=== PATIENT | female | born 2000 | race Caucasian/White ===

== ENCOUNTER 2021-05-24 15:49 | Observation (INO) ==
[2021-05-24] MEDS ORDERED: ONDANSETRON INJ 2 MG/ML 2 ML VIAL IV STA (16:09)
--- NOTE | 2021-05-24 16:10 | Emergency Department Note ---
History of Present Illness General Chief complaint: Alcohol Intoxication Time Seen by Provider: 05/24/21 15:57 History of Present Illness This is a 21-year-old otherwise healthy female that presents to the emergency department via EMS over concerns of alcohol intoxication/vomiting. In speaking with the EMS staff, they were notified by [place] police that the patient was found being carried/supported by 2 people. This was near [facility]. Police witnessed this and then checked on her. She was found to be quite intoxicated and vomiting. EMS were summoned. As EMS were being summoned the patient was placed in her residence at [address] however then began vomiting. EMS notes that she continues to vomit on scene and also in the ambulance. Patient was found to have what they believe is approximately 31 tallies on her left forearm which she notes indicates number of consumed alcohol drinks. The patient denies any pain. The patient denies any pertinent past medical history, surgeries or allergies. Patient slow to answer questions noting suspected intoxicated state. Home Medications Medication Instructions Recorded Confirmed Type No Known Home Medications 05/24/21 05/24/21 History Allergies Allergy/AdvReac Type Severity Reaction Status Date / Time No Known Allergies Allergy Unverified 05/24/21 22:13 Past Med/Surg History Medical History No pertinent past medical history Surgical History No pertinent past surgical history Social History Smoking Status: Never smoker Hx Alcohol Use: Yes Alcohol type: hard liquor Hx Substance Use: No Preferred Language: German Communication Ability: Effective Wellness Health Coach Required: No Beliefs That Will Affect Care: None Current Living Situation: Other Current Living Situation Comment: four roomates Feels Safe at Home: Yes Assistive Devices: None Review of Systems A total of 10 systems reviewed and were otherwise negative Physical Exam Vital Signs Vital Signs - 24 hr 05/24/21 15:40 05/24/21 16:00 05/24/21 16:05 Temperature 36.3 C L Temperature Source Oral Pulse Rate 68 61 56 L Pulse Rate from SpO2 Sensor 59 L Pulse Rhythm Regular Respiratory Rate 16 17 20 Respiratory Effort / Characteristics Non-Labored Respiratory Depth Normal Respiratory Pattern Regular Blood Pressure 109/58 L 109/58 L Blood Pressure Mean 75 75 Pulse Oximetry 98 99 99 Oxygen Delivery Method Room Air Room Air Sepsis Recent Fever Within 48 Hours No Sepsis New/Unexplained Change in Mental Status No Sepsis Action Taken by Nursing No Action Required 05/24/21 16:10 05/24/21 16:20 05/24/21 16:30 Temperature Temperature Source Pulse Rate 64 87 76 Pulse Rate from SpO2 Sensor 66 86 75 Pulse Rhythm Respiratory Rate 18 20 23 Respiratory Effort / Characteristics Respiratory Depth Respiratory Pattern Blood Pressure 116/54 L Blood Pressure Mean 74 Pulse Oximetry 100 100 100 Oxygen Delivery Method Sepsis Recent Fever Within 48 Hours Sepsis New/Unexplained Change in Mental Status Sepsis Action Taken by Nursing 05/24/21 16:40 05/24/21 16:50 05/24/21 17:00 Temperature Temperature Source Pulse Rate 70 73 72 Pulse Rate from SpO2 Sensor 66 73 72 Pulse Rhythm Respiratory Rate 24 15 23 Respiratory Effort / Characteristics Respiratory Depth Respiratory Pattern Blood Pressure 97/53 L Blood Pressure Mean 67 Pulse Oximetry 100 100 99 Oxygen Delivery Method Sepsis Recent Fever Within 48 Hours Sepsis New/Unexplained Change in Mental Status Sepsis Action Taken by Nursing 05/24/21 17:10 05/24/21 17:20 05/24/21 17:30 Temperature Temperature Source Pulse Rate 75 55 L 63 Pulse Rate from SpO2 Sensor 77 54 L 57 L Pulse Rhythm Respiratory Rate 24 17 17 Respiratory Effort / Characteristics Respiratory Depth Respiratory Pattern Blood Pressure Blood Pressure Mean Pulse Oximetry 100 99 99 Oxygen Delivery Method Sepsis Recent Fever Within 48 Hours Sepsis New/Unexplained Change in Mental Status Sepsis Action Taken by Nursing 05/24/21 17:40 05/24/21 17:50 05/24/21 18:00 Temperature Temperature Source Pulse Rate 76 71 73 Pulse Rate from SpO2 Sensor 78 71 73 Pulse Rhythm Respiratory Rate 22 16 20 Respiratory Effort / Characteristics Respiratory Depth Respiratory Pattern Blood Pressure 114/57 L Blood Pressure Mean 76 Pulse Oximetry 100 100 100 Oxygen Delivery Method Room Air Room Air Room Air Sepsis Recent Fever Within 48 Hours Sepsis New/Unexplained Change in Mental Status Sepsis Action Taken by Nursing 05/24/21 18:10 05/24/21 18:20 05/24/21 18:30 Temperature Temperature Source Pulse Rate 90 90 Pulse Rate from SpO2 Sensor 90 89 Pulse Rhythm Respiratory Rate 20 27 H Respiratory Effort / Characteristics Respiratory Depth Respiratory Pattern Blood Pressure 113/58 L Blood Pressure Mean 76 Pulse Oximetry 100 100 Oxygen Delivery Method Room Air Room Air Room Air Sepsis Recent Fever Within 48 Hours Sepsis New/Unexplained Change in Mental Status Sepsis Action Taken by Nursing 05/24/21 18:40 05/24/21 18:50 05/24/21 19:00 Temperature Temperature Source Pulse Rate 87 86 84 Pulse Rate from SpO2 Sensor 86 85 Pulse Rhythm Respiratory Rate 19 16 15 Respiratory Effort / Characteristics Respiratory Depth Respiratory Pattern Blood Pressure 121/77 Blood Pressure Mean 91 Pulse Oximetry 100 99 Oxygen Delivery Method Room Air Room Air Room Air Sepsis Recent Fever Within 48 Hours Sepsis New/Unexplained Change in Mental Status Sepsis Action Taken by Nursing 05/24/21 19:10 05/24/21 19:20 05/24/21 19:30 Temperature Temperature Source Pulse Rate 105 H 85 89 Pulse Rate from SpO2 Sensor 107 H 86 91 H Pulse Rhythm Respiratory Rate 23 23 24 Respiratory Effort / Characteristics Respiratory Depth Respiratory Pattern Blood Pressure 130/73 Blood Pressure Mean 92 Pulse Oximetry 99 100 99 Oxygen Delivery Method Room Air Room Air Room Air Sepsis Recent Fever Within 48 Hours Sepsis New/Unexplained Change in Mental Status Sepsis Action Taken by Nursing 05/24/21 19:40 Temperature Temperature Source Pulse Rate 87 Pulse Rate from SpO2 Sensor 175 H Pulse Rhythm Respiratory Rate 20 Respiratory Effort / Characteristics Respiratory Depth Respiratory Pattern Blood Pressure Blood Pressure Mean Pulse Oximetry 100 Oxygen Delivery Method Room Air Sepsis Recent Fever Within 48 Hours Sepsis New/Unexplained Change in Mental Status Sepsis Action Taken by Nursing VITAL SIGNS - Vital signs and nursing notes were reviewed. Stable and afebrile. GENERAL - 21-year-old female appearing her stated age. Patient is slow to re spond to questions noting the suspected intoxicated state. She answers with basic responses. Patient does clinically appear to be intoxicated. SKIN - Gross examination of the entire body surface demonstrates no lacerations to the body surface. There are black tally moreno to the patient's left ventral forearm region. HEAD - Normocephalic, Atraumatic. No Cross's Sign or Raccoon's Eyes. No depres sed skull fractures palpable. EYES - PERRL with EOMI bilaterally. Pupils are dilated. Patient slow to open her eyes. EARS - No deformities of external structures noted on gross examination bilaterally. No hemotympanum present. No tympanic perforation noted. Handle of malleus, umbo, cone of light, pars tensa/flaccid all easily visualized. NOSE - Midline and without cyanosis. No epistaxis or clear watery discharge noted. Septum midline without deviation. No septal hematoma noted. No overlying ecchymosis noted. MOUTH/OROPHARYNX - Without perioral cyanosis. Tongue midline with equal elevation of palate bilaterally. No blood noted in the oropharynx. No tonsillar hypertrophy, erythema, or exudates noted. No dental fractures noted. NECK -no signs of neck trauma clinically. LUNGS - Chest wall symmetric without accessory muscle use, intercostals retractions, or central cyanosis. Normal vesicular breath sounds CTA B/L. No wheezes, rales, or rhonchi appreciated. CARDIAC - RRR with S1/S2. No murmur, rubs, or gallops appreciated. EXTREMITIES - No gross deformities noted of the extremities. +5/5 strength noted in UE/LE bilaterally. NEUROLOGIC - Cranial nerves II through XII grossly intact. PSYCH -patient alert when asked questions but does not know where she currently is. Course Administered Medications Multivitamins 10 ml/ Thiamine HCl 100 mg/ Folic Acid 1 mg/Sodium Chloride 1,011.2 mls @ 125 mls/hr IV .Q8H6M ONE Stop: 05/25/21 02:35 Last Admin: 05/24/21 20:27 Dose: 125 mls/hr Documented by: [id number] Discontinued Medications Sodium Chloride (Nss 1000ml) 1,000 mls @ 250 mls/hr IV .Q4H JAMEY Stop: 05/24/21 21:29 Last Infusion: 05/25/21 01:09 Dose: 0 mls/hr Documented by: [id number] Infusion: 05/24/21 20:52 Dose: 0 mls/hr Documented by: [id number] Admin: 05/24/21 17:28 Dose: 250 mls/hr Documented by: [id number] Lorazepam (Lorazepam 2 Mg/1 Ml Vial) 0.5 mg IV NOW STA Stop: 05/24/21 20:32 Last Admin: 05/24/21 20:52 Dose: 0.5 mg Documented by: [id number] Ondansetron HCl (Ondansetron Inj 2 Mg/Ml 2 Ml Vial) 4 mg IV NOW STA Stop: 05/24/21 16:10 Last Admin: 05/24/21 16:41 Dose: 4 mg Documented by: [id number] Medical Decision Making Laboratory Data Result diagrams: 05/24/21 16:25 05/24/21 16:25 Lab Results 05/24/21 05/24/21 05/24/21 Range/Units 16:25 16:25 16:25 WBC (4.8-10.8) K/uL RBC (4.2-5.4) M/uL Hgb (12.0-16.0) g/dL Hct (37-47) % MCV (80-100) fL MCH (25-34) pg MCHC (32-36) g/dL RDW Std Deviation (36.4-46.3) fL RDW Coeff of Robby (11.5-14.5) % Plt Count (130-400) K/uL MPV (7.4-10.4) fL Immature Gran % (Auto) % Neut % (Auto) % Lymph % (Auto) % [place] % (Auto) % Eos % (Auto) % Baso % (Auto) % Neut # (Auto) (1.4-6.5) K/uL Lymph # (Auto) (1.2-3.4) K/uL [place] # (Auto) (0.11-0.59) K/uL Eos # (Auto) (0-0.5) K/uL Baso # (Auto) (0-0.2) K/uL Immature Gran # (Auto) (0.00-0.02) K/uL Sodium 136 (136-145) mmol/L Potassium 3.6 (3.5-5.1) mmol/L Chloride 105 (98-107) mmol/L Carbon Dioxide 20 L (21-32) mmol/L Anion Gap 11 (3-11) BUN 13 (6-23) mg/dl Creatinine 0.83 (0.6-1.2) mg/dl Est Cr Clr Drug Dosing Not Reportable Est GFR ( Amer) 117.7 ml/min Est GFR (Non-Af Amer) 101.5 ml/min Fasting Glucose 101 H (70-99) mg/dl Calcium 8.3 L (8.5-10.1) mg/dl Phosphorus (2.5-4.9) mg/dl Magnesium (1.7-2.4) mg/dl Troponin I (0-0.04) ng/ml HCG, Qual Negative (Negative) Urine Opiates Screen (Neg) Ur Methadone, Qual (Neg) Urine Barbiturates (Neg) Ur Phencyclidine (PCP) (Neg) U Amphetamin/Meth Scrn (Neg) MDMA (Ecstasy) Screen (Neg) U Benzodiazepines Scrn (Neg) Ur Cocaine Metabolite (Neg) U Marijuana (THC) Screen (Neg) Ethyl Alcohol mg/dL 249.1 H (<10.0) mg/dl 05/24/21 05/24/21 05/24/21 Range/Units 16:25 16:25 16:25 WBC 6.23 (4.8-10.8) K/uL RBC 3.97 L (4.2-5.4) M/uL Hgb 12.0 (12.0-16.0) g/dL Hct 36.2 L (37-47) % MCV 91.2 (80-100) fL MCH 30.2 (25-34) pg MCHC 33.1 (32-36) g/dL RDW Std Deviation 41.3 (36.4-46.3) fL RDW Coeff of Robby 12.3 (11.5-14.5) % Plt Count 244 (130-400) K/uL MPV 9.9 (7.4-10.4) fL Immature Gran % (Auto) 0.2 % Neut % (Auto) 69.9 % Lymph % (Auto) 23.6 % [place] % (Auto) 5.6 % Eos % (Auto) 0.5 % Baso % (Auto) 0.2 % Neut # (Auto) 4.36 (1.4-6.5) K/uL Lymph # (Auto) 1.47 (1.2-3.4) K/uL [place] # (Auto) 0.35 (0.11-0.59) K/uL Eos # (Auto) 0.03 (0-0.5) K/uL Baso # (Auto) 0.01 (0-0.2) K/uL Immature Gran # (Auto) 0.01 (0.00-0.02) K/uL Sodium (136-145) mmol/L Potassium (3.5-5.1) mmol/L Chloride (98-107) mmol/L Carbon Dioxide (21-32) mmol/L Anion Gap (3-11) BUN (6-23) mg/dl Creatinine (0.6-1.2) mg/dl Est Cr Clr Drug Dosing Est GFR ( Amer) ml/min Est GFR (Non-Af Amer) ml/min Fasting Glucose (70-99) mg/dl Calcium (8.5-10.1) mg/dl Phosphorus 3.7 (2.5-4.9) mg/dl Magnesium 2.0 (1.7-2.4) mg/dl Troponin I < 0.03 (0-0.04) ng/ml HCG, Qual (Negative) Urine Opiates Screen (Neg) Ur Methadone, Qual (Neg) Urine Barbiturates (Neg) Ur Phencyclidine (PCP) (Neg) U Amphetamin/Meth Scrn (Neg) MDMA (Ecstasy) Screen (Neg) U Benzodiazepines Scrn (Neg) Ur Cocaine Metabolite (Neg) U Marijuana (THC) Screen (Neg) Ethyl Alcohol mg/dL (<10.0) mg/dl 05/24/21 Range/Units 19:41 WBC (4.8-10.8) K/uL RBC (4.2-5.4) M/uL Hgb (12.0-16.0) g/dL Hct (37-47) % MCV (80-100) fL MCH (25-34) pg MCHC (32-36) g/dL RDW Std Deviation (36.4-46.3) fL RDW Coeff of Robby (11.5-14.5) % Plt Count (130-400) K/uL MPV (7.4-10.4) fL Immature Gran % (Auto) % Neut % (Auto) % Lymph % (Auto) % [place] % (Auto) % Eos % (Auto) % Baso % (Auto) % Neut # (Auto) (1.4-6.5) K/uL Lymph # (Auto) (1.2-3.4) K/uL [place] # (Auto) (0.11-0.59) K/uL Eos # (Auto) (0-0.5) K/uL Baso # (Auto) (0-0.2) K/uL Immature Gran # (Auto) (0.00-0.02) K/uL Sodium (136-145) mmol/L Potassium (3.5-5.1) mmol/L Chloride (98-107) mmol/L Carbon Dioxide (21-32) mmol/L Anion Gap (3-11) BUN (6-23) mg/dl Creatinine (0.6-1.2) mg/dl Est Cr Clr Drug Dosing Est GFR ( Amer) ml/min Est GFR (Non-Af Amer) ml/min Fasting Glucose (70-99) mg/dl Calcium (8.5-10.1) mg/dl Phosphorus (2.5-4.9) mg/dl Magnesium (1.7-2.4) mg/dl Troponin I (0-0.04) ng/ml HCG, Qual (Negative) Urine Opiates Screen Neg (Neg) Ur Methadone, Qual Neg (Neg) Urine Barbiturates Neg (Neg) Ur Phencyclidine (PCP) Neg (Neg) U Amphetamin/Meth Scrn Neg (Neg) MDMA (Ecstasy) Screen Neg (Neg) U Benzodiazepines Scrn Neg (Neg) Ur Cocaine Metabolite Neg (Neg) U Marijuana (THC) Screen Neg (Neg) Ethyl Alcohol mg/dL (<10.0) mg/dl Imaging Data Radiologist's Impression: Head CT 05/24/21 00:00 CT OF THE HEAD WITHOUT CONTRAST CLINICAL HISTORY: emesis, alcohol COMPARISON STUDY: No previous studies for comparison. TECHNIQUE: Helical axial images of the head were obtained without IV contrast. Automated exposure control was utilized for the study. A dose lowering technique was utilized adhering to the principles of ALARA. FINDINGS: No acute intracranial hemorrhage, midline shift or mass effect is present. The ventricular system is unremarkable. The basal cisterns are patent. No extra-axial collections are present. There are no findings to suggest acute dural sinus thrombosis or acute territorial infarct. No significant calvarial abnormalities are present. Visualized portions of the sinuses and mastoid air cells are clear. IMPRESSION: 1. No acute intracranial findings. 2. No calvarial fracture. ACT 112: Negative or not required by law. Electronically signed by: Waylon Hatch M.D. 05/24/2021 11:[address] 05/24/21 18:30 CT OF THE CERVICAL SPINE WITHOUT CONTRAST CLINICAL HISTORY: emesis, alcohol COMPARISON STUDY: No previous studies for comparison. TECHNIQUE: Helical axial images of the cervical spine were obtained without IV contrast. Sagittal and coronal reconstructions were viewed. Automated exposure control was utilized for the study. A dose lowering technique was utilized adhering to the principles of ALARA. FINDINGS: There is reversal of the normal cervical lordosis. Vertebral body heights are maintained. No acute cervical spine fracture or subluxation is present. There is no prevertebral edema. Facet joints are intact. IMPRESSION: No acute cervical spine fracture or subluxation. ACT 112: Negative or not required by law. Electronically signed by: aWylon Hatch M.D. 05/24/2021 11:33 PM Chest X-Ray 05/24/21 18:30 XR chest 1V portable HISTORY: emesis, alcohol COMPARISON: None. FINDINGS: The lungs are clear. Cardiac silhouette is normal in size. No pleural effusions. No pneumothorax. Incidental note is made of a small right azygos lobe. IMPRESSION: No acute process. ACT 112: Negative or not required by law. Electronically signed by: Anish Lambert M.D. 05/24/2021 7:[address] HEAD: No acute intracranial hemorrhage, edema or mass. No extra-axial fluid collection. No calvarial fracture. Visualized orbits, paranasal sinuses and mastoids are unremarkable. Radiologist: Rocco dEgar M.D. Study ready at 20:36 and initial results transmitted at 22:57 CT C SPINE: Normal alignment of cranial-cervical junction. No acute fracture or malalignment. No prevertebral soft tissue swelling or paraspinous hematoma. Radiologist: Rocco Edgar M.D. Study ready at 20:36 and initial results transmitted at 22:59 MDM Narrative Patient was seen and evaluated as above in room A 11. Review was performed of nursing notes and vital signs. After obtaining a thorough history and physical examination the above work up was performed. Patient presents to us today via EMS for evaluation of vomiting in the setting of recent alcohol ingestion. Vital signs stable. She is nontoxic on examination but does appear to be clinically intoxicated. The patient does not have any signs of trauma to inspection. Given the patient's suspected intoxicated state in the setting of vomiting IV access was established, labs were drawn and she was given IV Zofran for her continued vomiting here. Patient was placed on aspiration precautions. I did o rder IV fluids for the patient here. Labs reveal no leukocytosis or concerning anemia. No emergent metabolic disturbance. Troponin x1 -. hCG negative. Urine drug screen negative. EtOH 249.1. Covid negative. I then was notified of a cardiac alarm castro at 182 and upon review of this it appeared to start with sinus rhythm and then there were P waves without QRS complexes for a run of 5 P waves followed by 1 normal beat and then 3 P waves without QRS complexes followed by 1 normal beat. This then seemed to resolve and an EKG was obtained. This reveals normal sinus rhythm at a rate of 82 bpm. QTc 486. QRS 90. The QT is prolonged. T WI lead III, V1, V2 and V3. Artifact noted in V4 and V5. No previous for comparison. With this conduction abnormality I did find it reasonable to discussed this with the attending physician. He also evaluate the patient. I then discussed this with the portfolio analyst, Dr. Oliveira. I will note that I was notified by the nurse that this rhythm tracing that was abnormal was during a period of vomiting/attempted vomiting. Patient was then resting comfortably. Her nausea did return and was ordered a small dose of Ativan. Attempts were made to refrain from any further QT prolongation agents. In discussing this with Dr. Salmon as well, we did agree upon CT imaging of the head and C-spine to rule out any other underlying emergent intracranial process that could be contributing to the patient's vomiting here at the present time. These were reassuringly negative. I also obtained a chest x-ray and there was no cardiac enlargement noted. It is felt that the benefit of the imaging outweighed risk. I was then notified by the nurse again that there was another cardiac abnormality with the rhythm strip. This was at 2021. There was again what appeared to be normal sinus rhythm that was then followed by 5 P waves without QRS complexes and then 1 normal beat followed by 2 P waves without QRS complexes. At this time I do believe that further evaluation and management in the inpatient setting is warranted. Medicine service was consulted. The patient did consent to allowing us to speak with her parents. The attending chaav silva, Dr. Salmon did speak with the patient and patient's mother via phone. Please refer to further documentation regarding the patient's stay here in the hospital. In discussing this with Dr. Salmon we also change the patient's IV fluids to a supplement hydration that included multivitamins, thiamine, folic acid at a rate of 125 mL's per hour. I will note that the patient was able to become clinically sober throughout her stay here and answer all questions appropriately. She is amenable to staying for further work-up for her arrhythmia. While in the department, I personally reevaluated the patient several times and each time the patient was found to be resting comfortably. An order was placed for continuous cardiac monitoring. Monitor shows a rate of 92 in sinus rhythm. In the evaluation and treatment of this patient the following differential diagnoses were entertained: Arrhythmia, electrolyte disturbance, cardiac abnormality, aspiration, intoxication, among others. Impression & Plan Arrhythmia, Alcohol intoxication, QT prolongation, Nausea & vomiting Discharge Plan Visit Data Chief Complaint: Alcohol Intoxication ED Provider: Jimmy Salmon ED Midlevel Provider: Brant Franks Discharge Problem: Arrhythmia, Alcohol intoxication, QT prolongation, Nausea & vomiting Patient Disposition: Admitted As Inpatient Condition: Good Discharge Instructions Interventions: ED Discharge Assessment Last Done: 05/25/21 00:31
[2021-05-24 16:41] LABS: Basophils # (auto) 0.01 K/uL (0-0.2); Basophils % (auto) 0.2 %; Eosinophils # (auto) 0.03 K/uL (0-0.5); Eosinophils % (auto) 0.5 %; Hematocrit (blood only) 36.2 % (37-47); Immature Granulocytes # (auto) 0.01 K/uL (0.00-0.02); Immature Granulocytes % (auto) 0.2 %; Lymphocytes # (auto) 1.47 K/uL (1.2-3.4); Lymphocytes % (auto) 23.6 %; Mean Corpuscular Hemoglobin 30.2 pg (25-34); Mean Corpuscular Hgb Conc 33.1 g/dL (32-36); Mean Corpuscular Volume 91.2 fL (80-100); Mean Platelet Volume 9.9 fL (7.4-10.4); Monocytes # (auto) 0.35 K/uL (0.11-0.59); Monocytes % (auto) 5.6 %; Neutrophils # (auto) 4.36 K/uL (1.4-6.5); Neutrophils % (auto) 69.9 %; Platelet Count 244 K/uL (130-400); RDW Coefficient of Variation 12.3 % (11.5-14.5); RDW Standard Deviation 41.3 fL (36.4-46.3); Red Blood Count 3.97 M/uL (4.2-5.4); White Blood Count 6.23 K/uL (4.8-10.8)
[2021-05-24 17:04] LABS: Pregnancy Test, Serum Negative (Negative)
[2021-05-24 17:13] LABS: Anion Gap 11 (3-11); Blood Urea Nitrogen 13 mg/dl (6-23); Calcium 8.3 mg/dl (8.5-10.1); Carbon Dioxide 20 mmol/L (21-32); Chloride 105 mmol/L (98-107); Est GFR (African American) 117.7 ml/min; Est GFR (Non-African American) 101.5 ml/min; Glucose Fasting 101 mg/dl (70-99); Potassium 3.6 mmol/L (3.5-5.1); Sodium 136 mmol/L (136-145)
[2021-05-24] MEDS ORDERED: SODIUM CHLORIDE 0.9% 1000ML 1,000 ML IV SCH (17:30)
[2021-05-24] MEDS ORDERED: MULTI-VITAMIN INFUSION 10 ML, THIAMINE HCL 100 MG, FOLIC ACID 1 MG in SODIUM CHLORIDE 0... IV ONE (18:30)
--- NOTE | 2021-05-24 19:13 | XRay Report ---
XR chest 1V portable HISTORY: emesis, alcohol COMPARISON: None. FINDINGS: The lungs are clear. Cardiac silhouette is normal in size. No pleural effusions. No pneumot horax. Incidental note is made of a small right azygos lobe. IMPRESSION: No acute process. ACT 112: Negative or not required by law. Electronically signed by: Anish Lambert M.D. 05/24/2021 7:11 PM
[2021-05-24 20:13] LABS: Amphetamines+Metham, Urine Neg (Neg); Barbiturates, Urine Neg (Neg); Benzodiazepine, Urine Neg (Neg); Cocaine, Urine Neg (Neg); MDMA (Ecstacy), Urine Neg (Neg); Methadone, Urine Neg (Neg); Opiate, Urine Neg (Neg); Phencyclidine, Urine Neg (Neg)
[2021-05-24] MEDS ORDERED: LORazepam 2 MG/1 ML VIAL IV STA (20:31)
--- NOTE | 2021-05-24 20:37 | History & Physical Report ---
Date of Service May 24, 2021 Assessment & Plan (1) Alcohol intoxication: Plan: Dede Hale is a 21yo otherwise healthy female who presented to [facility] ED on 05/24 for alcohol intoxication and arrhythmia. Alcohol Intoxication BAL 249.1, last drink early afternoon, chronically has 5-10 drinks per week. - s/p banana bag in ED - ordered thiamine/folic acid PO in the AM - AWSS protocol with PRN Ativan - contact provider for anti-emetics if necessary, given prolonged QTc 486ms - ordered K/Mg - pending, as well as AM electrolytes Arrhythmia, QTc prolongation Two instances of asymptomatic 4-second AV block (appears to be 2nd degree) per telemetry ED monitoring. Both events occurred while patient was lying in bed, at rest. Given possible family h/o WPW, this may be a possibility. May also be temporary occurrence in setting of severe alcohol intoxication and dehydration. - would consider Atropine IVP if becomes symptomatic/unstable with further events - repeat EKG ordered for tomorrow AM - recommend outpatient Cardiology evaluation, as well as PCP follow-up FEN/GI: regular diet, banana bag DVT Prophylaxis: not indicated Code Status: full Disposition: med/surg with tele (2) Arrhythmia: (3) QT prolongation: History of Present Illness Chief Complaint: alcohol intoxication Primary Care Provider: NO PCP Dede Hale is a 21yo otherwise healthy female who presented to [facility] ED on 05/24 for alcohol intoxication (BAL 249.1mg/dl). Reportedly was found intoxicated and being carried/supported by 2 people. Vomited several times en route to the hospital via EMS. Has 31 pen patricia tallies on left forearm which she reports indicates the amount of drinks she had over the last 3 days. Was drinking more than usual as she was celebrating [employer] Day with her friends/roommate. She usually drinks 5-10 drinks per week (mostly liquor), usually on 1-2 occas ions per week. Denies previous alcohol withdrawal symptoms. Denies other drug use or tobacco use/smoking. Denies chronic medical conditions. Denies PMHx of arrhythmia and denies previous chest pain or palpitations, but does report that brother had "arrhythmia" and had an ablation for it. Denies personal or family history of sudden cardiac . On presentation to the ED, she had two instances of 4-second AV-block per telemetry monitoring, without associated symptoms of syncope/near- syncope/dizziness/lightheadedness/chest pain. EKG showed RSR' in V1/V2 suggesting RV conduction delay, in addition to QTc prolongation 486ms. Otherwise remained afebrile and hemodynamically stable. Labs, including CBC/BMP/Trop unremarkable. HCG negative. UDS pham-negative. CT head and CT c-spine unremarkable for acute process/fracture. Patient received banana bag x1 in the ED. Got Zofran 4mg IV x1 for nausea, which led to improvement in symptoms and no further vomiting. Also got Ativan 0.5mg IV x1. Allergies Allergy/AdvReac Type Severity Reaction Status Date / Time No Known Allergies Allergy Unverified 05/24/21 22:13 Home Medications Medication Instructions Recorded Confirmed Type No Known Home Medications 05/24/21 05/24/21 History Past Med/Surg History Medical History No pertinent past medical history Surgical History No pertinent past surgical history Social History Smoking Status: Never smoker Feels Safe at Home: Yes Review of Systems Review of Systems: All systems reviewed & are unremarkable except as noted in HPI & below Physical Exam Physical Exam: General: A&Ox3. NAD. Cooperative. HEENT: Atraumatic, normocephalic. Pulm: CTAB A&P. -wheezes, -rales, -rhonchi. Symmetrical chest rise. No increase work of breathing. No respiratory distress. Cardiac: RRR, -mrg. Radial pulses intact and symmetrical. Abdominal: soft, non-tender, non-distended, BS x 4 Skin: warm, dry, no rash. Left forearm with pen ackerman as stated in HPI Results & Data Results & Data ([facility]) Vital Signs (Past 12 Hours) Vital Signs Temp Pulse Resp BP Pulse Ox 05/24/21 19:40 87 20 100 05/24/21 19:30 89 24 130/73 99 05/24/21 19:20 85 23 100 05/24/21 19:10 105 H 23 99 05/24/21 19:00 84 15 121/77 99 05/24/21 18:50 86 16 100 05/24/21 18:40 87 19 05/24/21 18:30 90 27 H 113/58 L 05/24/21 18:20 90 20 100 05/24/21 18:10 100 05/24/21 18:00 73 20 114/57 L 100 05/24/21 17:50 71 16 100 05/24/21 17:40 76 22 100 05/24/21 17:30 63 17 99 05/24/21 17:20 55 L 17 99 05/24/21 17:10 75 24 100 05/24/21 17:00 72 23 97/53 L 99 05/24/21 16:50 73 15 100 05/24/21 16:40 70 24 100 05/24/21 16:30 76 23 116/54 L 100 05/24/21 16:20 87 20 100 05/24/21 16:10 64 18 100 05/24/21 16:05 56 L 20 99 05/24/21 16:00 61 17 109/58 L 99 05/24/21 15:40 36.3 C L 68 16 109/58 L 98 Laboratory Results Laboratory Results WBC 6.23 K/uL (4.8-10.8) 05/24/21 16:25 RBC 3.97 M/uL (4.2-5.4) L 05/24/21 16:25 Hgb 12.0 g/dL (12.0-16.0) 05/24/21 16:25 Hct 36.2 % (37-47) L 05/24/21 16:25 MCV 91.2 fL (80-100) 05/24/21 16:25 MCH 30.2 pg (25-34) 05/24/21 16:25 MCHC 33.1 g/dL (32-36) 05/24/21 16:25 RDW Std Deviation 41.3 fL (36.4-46.3) 05/24/21 16:25 RDW Coeff of Robby 12.3 % (11.5-14.5) 05/24/21 16:25 Plt Count 244 K/uL (130-400) 05/24/21 16:25 MPV 9.9 fL (7.4-10.4) 05/24/21 16:25 Immature Gran % (Auto) 0.2 % 05/24/21 16:25 Neut % (Auto) 69.9 % 05/24/21 16:25 Lymph % (Auto) 23.6 % 05/24/21 16:25 [place] % (Auto) 5.6 % 05/24/21 16:25 Eos % (Auto) 0.5 % 05/24/21 16:25 Baso % (Auto) 0.2 % 05/24/21 16:25 Neut # (Auto) 4.36 K/uL (1.4-6.5) 05/24/21 16:25 Lymph # (Auto) 1.47 K/uL (1.2-3.4) 05/24/21 16:25 [place] # (Auto) 0.35 K/uL (0.11-0.59) 05/24/21 16:25 Eos # (Auto) 0.03 K/uL (0-0.5) 05/24/21 16:25 Baso # (Auto) 0.01 K/uL (0-0.2) 05/24/21 16:25 Immature Gran # (Auto) 0.01 K/uL (0.00-0.02) 05/24/21 16:25 Sodium 136 mmol/L (136-145) 05/24/21 16:25 Potassium 3.6 mmol/L (3.5-5.1) 05/24/21 16:25 Chloride 105 mmol/L (98-107) 05/24/21 16:25 Carbon Dioxide 20 mmol/L (21-32) L 05/24/21 16:25 Anion Gap 11 (3-11) 05/24/21 16:25 BUN 13 mg/dl (6-23) 05/24/21 16:25 Creatinine 0.83 mg/dl (0.6-1.2) 05/24/21 16:25 Est Cr Clr Drug Dosing Not Reportable 05/24/21 16:25 Est GFR ( Amer) 117.7 ml/min 05/24/21 16:25 Est GFR (Non-Af Amer) 101.5 ml/min 05/24/21 16:25 Fasting Glucose 101 mg/dl (70-99) H 05/24/21 16:25 Calcium 8.3 mg/dl (8.5-10.1) L 05/24/21 16:25 Phosphorus 3.7 mg/dl (2.5-4.9) 05/24/21 16:25 Magnesium 2.0 mg/dl (1.7-2.4) 05/24/21 16:25 Troponin I < 0.03 ng/ml (0-0.04) 05/24/21 16:25 HCG, Qual Negative (Negative) 05/24/21 16:25 Urine Opiates Screen Neg (Neg) 05/24/21 19:41 Ur Methadone, Qual Neg (Neg) 05/24/21 19:41 Urine Barbiturates Neg (Neg) 05/24/21 19:41 Ur Phencyclidine (PCP) Neg (Neg) 05/24/21 19:41 U Amphetamin/Meth Scrn Neg (Neg) 05/24/21 19:41 MDMA (Ecstasy) Screen Neg (Neg) 05/24/21 19:41 U Benzodiazepines Scrn Neg (Neg) 05/24/21 19:41 Ur Cocaine Metabolite Neg (Neg) 05/24/21 19:41 U Marijuana (THC) Screen Neg (Neg) 05/24/21 19:41 Ethyl Alcohol mg/dL 249.1 mg/dl (<10.0) H 05/24/21 16:25 SARS-CoV-2, RNA, NAAT NEGATIVE (NEGATIVE) 05/24/21 21:[address] 05/24/21 00:00 CT OF THE HEAD WITHOUT CONTRAST CLINICAL HISTORY: emesis, alcohol COMPARISON STUDY: No previous studies for comparison. TECHNIQUE: Helical axial images of the head were obtained without IV contrast. Automated exposure control was utilized for the study. A dose lowering technique was utilized adhering to the principles of ALARA. FINDINGS: No acute intracranial hemorrhage, midline shift or mass effect is present. The ventricular system is unremarkable. The basal cisterns are patent. No extra-axial collections are present. There are no findings to suggest acute dural sinus thrombosis or acute territorial infarct. No significant calvarial abnormalities are present. Visualized portions of the sinuses and mastoid air cells are clear. IMPRESSION: 1. No acute intracranial findings. 2. No calvarial fracture. ACT 112: Negative or not required by law. Electronically signed by: Waylon Hatch M.D. 05/24/2021 11:[address] 05/24/21 18:30 CT OF THE CERVICAL SPINE WITHOUT CONTRAST CLINICAL HISTORY: emesis, alcohol COMPARISON STUDY: No previous studies for comparison. TECHNIQUE: Helical axial images of the cervical spine were obtained without IV contrast. Sagittal and coronal reconstructions were viewed. Automated exposure control was utilized for the study. A dose lowering technique was utilized adhering to the principles of ALARA. FINDINGS: There is reversal of the normal cervical lordosis. Vertebral body heights are maintained. No acute cervical spine fracture or subluxation is present. There is no prevertebral edema. Facet joints are intact. IMPRESSION: No acute cervical spine fracture or subluxation. ACT 112: Negative or not required by law. Electronically signed by: Waylon Hatch M.D. 05/24/2021 11:33 PM Chest X-Ray 05/24/21 18:30 XR chest 1V portable HISTORY: emesis, alcohol COMPARISON: None. FINDINGS: The lungs are clear. Cardiac silhouette is normal in size. No pleural effusions. No pneumothorax. Incidental note is made of a small right azygos lobe. IMPRESSION: No acute process. ACT 112: Negative or not required by law. Electronically signed by: Anish Lambert M.D. 05/24/2021 7:11 PM Code Status & VTE Plan Code Status Full code Supervising Physician Co-Signing Physician Notes Patient seen and examined, chart reviewed, case discussed with Dr. Granados and I agree with his assessment and plan as documented above. In brief, patient is a 21yo female with no significant past medical or surgical history presenting with EtOH intoxication. Found to have several episodes of AV block with several consecutive dropped QRS complexes on telemetry in ER. Asymptomatic. Patient is active, athletic. No issues with dizziness/syncope. No h/o SCD. Brother did have some sort of re- entry arrhythmia that has been ablated. On exam she is resting comfortably in bed, NAD Skin - warm, dry, intact. Ackerman on arm as above to denote number of EtOH drinks HEENT - NC/AT, PERRL, Neck supple Heart - +S1/S2, regular, no m/r/g Lungs - CTA Abd - +BS, soft, NT/ND Ext - Warm, well perfused, no clubbing/cyanosis or edema Neuro - grossly nonfocal Labs and images reviewed Assessment/Plan - 21yo female with EtOH intoxication, AV block noted on monitor with several dropped qrs complexes Electroltyes WNL Asymptomatic -Telemetry monitoring -Check Lyme, TSH with next blood draw -Remainder as above Resident Activity Tracking Resident Involvement: Resident Care Provided Care Provided: Adult Hospital Medicine
[2021-05-24 21:53] LABS: Phosphorus 3.7 mg/dl (2.5-4.9)
--- NOTE | 2021-05-24 23:32 | CT Scan Report ---
CT OF THE HEAD WITHOUT CONTRAST CLINICAL HISTORY: emesis, alcohol COMPARISON STUDY: No previous studies for comparison. TECHNIQUE: Helical axial images of the head were obtained without IV contrast. Automated exposure con trol was utilized for the study. A dose lowering technique was utilized adhering to the principles o f ALARA. FINDINGS: No acute intracranial hemorrhage, midline shift or mass effect is present. The ventricular system is unremarkable. The basal cisterns are patent. No extra-axial collections are present. There are no findings to suggest acute dural sinus thrombosis or acute territorial infarct. No significant calvarial abnormalities are present. Visualized portions of the sinuses and mastoid air cells are serge ar. IMPRESSION: 1. No acute intracranial findings. 2. No calvarial fracture. ACT 112: Negative or not required by law. Electronically signed by: Waylon Hatch M.D. 05/24/2021 11:30 PM
--- NOTE | 2021-05-24 23:34 | CT Scan Report ---
CT OF THE CERVICAL SPINE WITHOUT CONTRAST CLINICAL HISTORY: emesis, alcohol COMPARISON STUDY: No previous studies for comparison. TECHNIQUE: Helical axial images of the cervical spine were obtained without IV contrast. Sagittal a nd coronal reconstructions were viewed. Automated exposure control was utilized for the study. A do se lowering technique was utilized adhering to the principles of ALARA. FINDINGS: There is reversal of the normal cervical lordosis. Vertebral body heights are maintained. N o acute cervical spine fracture or subluxation is present. There is no prevertebral edema. Facet join ts are intact. IMPRESSION: No acute cervical spine fracture or subluxation. ACT 112: Negative or not required by law. Electronically signed by: Waylon Hatch M.D. 05/24/2021 11:33 PM
--- NOTE | 2021-05-24 23:36 | Billing Data ---
Date of Service May 24, 2021 Coding Level of Care Code INT OBSERVATION CARE 50M LVL 2
[2021-05-25] MEDS ORDERED: ATIVAN IV ALCOHOL WITHDRAWL IV PRN (00:48)
[2021-05-25] MEDS ORDERED: LORazepam 2 MG/1 ML VIAL IV PRN ×3 (00:48)
[2021-05-25] MEDS: THIAMINE HCL 100 MG TAB PO SCH ×2 (01:10→09:31)
[2021-05-25] MEDS: FOLIC ACID 1 MG TAB PO SCH ×2 (01:10→09:31)
--- NOTE | 2021-05-25 06:54 | Hospitalist Progress Note ---
Date of Service May 25, 2021 Assessment & Plan (1) Alcohol intoxication: Plan: Dede Hale is a 21yo otherwise healthy female who presented to [facility] ED on 05/24 for alcohol intoxication and arrhythmia. Alcohol Intoxication BAL 249.1, last drink early afternoon, chronically has 5-10 drinks per week. - s/p banana bag in ED - ordered thiamine/folic acid PO in the AM - AWSS protocol with PRN Ativan - contact provider for anti-emetics if necessary, given prolonged QTc 486ms - ordered K/Mg - pending, as well as AM electrolytes Arrhythmia, QTc prolongation Two instances of asymptomatic 4-second AV block (appears to be 2nd degree) per telemetry ED monitoring. Both events occurred while patient was lying in bed, at rest. Given possible family h/o WPW, this may be a possibility. May also be temporary occurrence in setting of severe alcohol intoxication and dehydration. - per Dr. Oliveira, would consider Atropine IVP if becomes symptomatic/unstable with further events - repeat EKG ordered for tomorrow AM - recommend outpatient Cardiology evaluation, as well as PCP follow-up FEN/GI: regular diet, banana bag DVT Prophylaxis: not indicated Code Status: full Disposition: med/surg with tele (2) Arrhythmia: (3) QT prolongation: Admission and Anticipated Discharge Date Admission Date: May 24, 2021 Results & Data Results & Data ([facility]) Vital Signs (Past 12 Hours) Vital Signs Temp Pulse Pulse Resp BP BP Pulse Ox 05/25/21 02:34 36.7 C 72 20 109/54 L 100 05/25/21 00:50 36.6 C 92 H 18 122/62 99 05/24/21 19:40 87 20 100 05/24/21 19:30 89 24 130/73 99 05/24/21 19:20 85 23 100 05/24/21 19:10 105 H 23 99 05/24/21 19:00 84 15 121/77 99
[2021-05-25 07:19] LABS: BUN Creatinine Ratio 15.4 (10-20); Calcium 8.9 mg/dl (8.5-10.1); Creatinine Clr Calc Pharmacy 129.9 ml/min; Est GFR (African American) 148.1 ml/min; Est GFR (Non-African American) 127.8 ml/min; Magnesium 1.7 mg/dl (1.7-2.4); Potassium 3.8 mmol/L (3.5-5.1)
[2021-05-25 08:50] LABS: Lyme Ab IgG w/WB Rflx Negative (Negative); Lyme Ab IgM w/WB Rflx Negative (Negative)
[2021-05-25] MEDS ORDERED: FAMOTIDINE 20 MG TAB PO ONE (12:03)
--- NOTE | 2021-05-25 12:50 | Electrocardiogram Report ---
Test Reason : Blood Pressure : / mmHG Vent. Rate : 082 BPM Atrial Rate : 082 BPM P-R Int : 184 ms QRS Dur : 090 ms QT Int : 416 ms P-R-T Axes : 038 077 003 degrees QTc Int : 486 ms Poor data quality, interpretation may be adversely affected Normal sinus rhythm Possible Left atrial enlargement RSR' or QR pattern in V1 suggests right ventricular conduction delay Abnormal ECG No previous ECGs available Confirmed by Jonny Han ([id number]) on 05/25/2021 12:50:32 PM Referred By: REFERRED SELF Confirmed By:Jonny Han
--- NOTE | 2021-05-25 12:58 | Electrocardiogram Report ---
Test Reason : Blood Pressure : / mmHG Vent. Rate : 084 BPM Atrial Rate : 084 BPM P-R Int : 168 ms QRS Dur : 088 ms QT Int : 388 ms P-R-T Axes : 044 082 011 degrees QTc Int : 458 ms Normal sinus rhythm Normal ECG When compared with ECG of 24-MAY-2021 18:37, (unconfirmed) RSR' pattern in V1 is no longer Present Confirmed by Jonny Han ([id number]) on 05/25/2021 12:57:26 PM Referred By: REFERRED SELF Confirmed By:Jonny Han
--- NOTE | 2021-05-25 13:08 | Discharge Summary ---
Date of Service May 25, 2021 Admission HPI Per Admitting Provider Dede Hale is a 21yo otherwise healthy female who presented to [facility] ED on 05/24 for alcohol intoxication (BAL 249.1mg/dl). Reportedly was found intoxicated and being carried/supported by 2 people. Vomited several times en route to the hospital via EMS. Has 31 pen patricia tallies on left forearm which she reports indicates the amount of drinks she had over the last 3 days. Was drinking more than usual as she was celebrating [employer] Day with her friends/roommate. She usually drinks 5-10 drinks per week (mostly liquor), usually on 1-2 occasions per week. Denies previous alcohol withdrawal symptoms. Denies other drug use or tobacco use/smoking. Denies chronic medical conditions. Denies PMHx of arrhythmia and denies previous chest pain or palpitations, but does report that brother had "arrhythmia" and had an ablation for it. Denies personal or family history of sudden cardiac . On presentation to the ED, she had two instances of 4-second AV-block per telemetry monitoring, without associated symptoms of syncope/near- syncope/dizziness/lightheadedness/chest pain. EKG showed RSR' in V1/V2 suggesting RV conduction delay, in addition to QTc prolongation 486ms. Otherwise remained afebrile and hemodynamically stable. Labs, including CBC/BMP/Trop unremarkable. HCG negative. UDS pham-negative. CT head and CT c-spine unremarkable for acute process/fracture. Patient received banana bag x1 in the ED. Got Zofran 4mg IV x1 for nausea, which led to improvement in symptoms and no further vomiting. Also got Ativan 0.5mg IV x1. Admission Exam Per Admitting Provider General: A&Ox3. NAD. Cooperative. HEENT: Atraumatic, normocephalic. Pulm: CTAB A&P. -wheezes, -rales, -rhonchi. Symmetrical chest rise. No increase work of breathing. No respiratory distress. Cardiac: RRR, -mrg. Radial pulses intact and symmetrical. Abdominal: soft, non-tender, non-distended, BS x 4 Skin: warm, dry, no rash. Left forearm with pen moreno as stated in HPI Principal Diagnosis Arrhythmia Discharge Exam Constitutional WD/WN, vitals as above Eyes PERRL, conjunctivae normal, anicteric sclerae ENMT external ear and nose normal, oropharynx normal Respiratory normal respiratory effort, lungs clear to auscultation Cardiovascular RRR, no murmur, no edema Gastrointestinal (Abdomen) normal bowel sounds, soft, nontender, no hepatosplenomegaly Psychiatric A+Ox3, euthymic affect Discharge Data Allergies Allergy/AdvReac Type Severity Reaction Status Date / Time No Known Allergies Allergy Unverified 05/24/21 22:13 Consultations 05/24/21 20:30 ED Decision to Admit Stat Ordered Studies 05/24/21 CT head/brain wo con Stat 05/24/21 18:30 CT cervical spine wo con Stat Hospital Course (1) Alcohol intoxication: Dede Hale is a 21yo otherwise healthy female who presented to [facility] ED on 05/24 for alcohol intoxication and arrhythmia. Alcohol Intoxication BAL 249.1, last drink early afternoon on day of admission, chronically has 5-10 drinks per week. - s/p banana bag in ED - ordered thiamine/folic acid PO in the AM - AWSS protocol with PRN Ativan - only required 1 dose in the ED - Pepcid PRN for nausea Arrhythmia, QTc prolongation Two instances of asymptomatic 4-second AV block (appears to be 2nd degree) per telemetry ED monitoring. Both events occurred while patient was lying in bed, at rest. Given possible family h/o WPW, this may be a possibility. May also be temporary occurrence in setting of severe alcohol intoxication and dehydration. - per Dr. Oliveira, would consider Atropine IVP if becomes symptomatic/unstable with further events - repeat EKG ordered for tomorrow AM -- Normal sinus rhythm with sinus arrhythmia - Continued telemetry monitoring did not note further episodes of block - Discussed with patient and recommended outpatient Cardiology follow up - to be scheduled with Dr. Burrell - Will likely require a cardiac holter monitor outpatient (2) Arrhythmia: (3) QT prolongation: Total Time Total Time Spent Total Time Spent (In Minutes): see attending attestation Discharge Plan Discharge Items Patient Disposition: Home - Self-Care Reason For Visit: ALCOHOL INTOXICATION, ARRHYTHMIA Discharge Diagnosis: Alcohol intoxication, Arrhytmia Condition on Discharge: Good Activity: Per Instructions section Non-emergency contact: Primary Care Provider and Life Skills Specialist Call non-emergency contact if: your symptoms worsen Follow-up/Referrals: Fragin,Gerald D, DO [Physician] - (Dr. Burrell or Chantale Weiss for follow up of arrhythmia ) PCP,NO [Primary Care Provider] - Diet: Regular Addtl Attending Provider Instructions: Ms. Hale, It was our pleasure caring for you at [facility] from 05/24- 05/25/21. While here you were initially found to have a fairly high alcohol level which was expected based on the history you had provided. At this time we feel that you are appropriate from an alcohol use standpoint for discharge. In regards to your nausea and upset stomach you can continue to take Pepcid (Famotidine) 20mg (2 tablets of over the counter Pepcid) up to twice a day. Also noted on your admission you had two instances of 4 seconds of AV Block (suspected second degree) in which the electricity in your heart did not travel appropriately. It appears that during both of these events you had been lying in bed and at rest. Fortunately, during the remainder of your stay this was no longer noted on telemetry or EKGs. While this was likely secondary to the increased alcohol intake over the past day, we feel it would be in your best interest to follow up with Cardiology (Dr. Burrell) after your discharge to ensure no underlying causes had contributed. A referral has been made and you should be contacted in regards to an appointment time and location. If you do not hear from us in the next 1 week, please call the office number for Dr. Burrell's office at to schedule an appointment. -Please follow up with cardiology in the next 1-2 weeks in regards to your arrhythmia -We would recommend reduction in your alcohol intake to no more than 5 alcoholic beverages weekly. If you find difficulty with reduction, please discuss this with your team physician or PCP. Pending Studies at Discharge: No Stand-Alone Forms: My [facility] [employer], Smoking Cessation Medications and DC Order Prescriptions: No Action No Known Home Medications RF: 0 Discharge Orders: Discharge Order (Routine); Ordered 05/25/21 Ordered By: Melquiades Hadley Admission Data Admit Date/Time: 05/24/21 21:07 Attending Provider: Jase Wolf Admit Provider: Tommy Granados Primary Care Provider: PCP,NO Other Providers: Erica Cowan Other Interventions: Discharge Summary Assessment (RN) Last Done: 05/25/21 13:00 Supervising Physician Co-Signing Physician Notes Patient seen and examined with PGY-3 Dr. Hadley. Agree with history, exam findings, assessment and plan of care as outlined. In brief, Dede is a 21 year old female admitted with alcohol intoxication and noted intermittent AV block on monitor tech in the ED. Feels a bit tired and nauseated, but no vomiting. No chest pain, palpitations or dyspnea. VS and nursing notes reviewed. Tele reviewed. Heart with regular rate and rhythm. Lungs are clear to auscultation throughout all lung rodriguez. Good air movement throughout. Labs and imaging reviewed. 1. ETOH intoxication. BAL on admission 249.1. Improved. Counseled on appropriate EOTH use. 2. Arrhythmia, QTc prolongation. AV block has not recurred. Electrolytes are in normal range. QTc slightly improved this morning. Recommend follow up with cardiology as an outpatient. Dispo: discharge this afternoon if no further events on the monitor. Follow up with [facility] or team physician, Dr. Henley. I personally spent 25 minutes discharge planning for this patient. Resident Activity Tracking Resident Involvement: Resident Care Provided Care Provided: Adult [facility] Medicine
== END 2021-05-25 13:19 | disposition home or self-care (01) ==
LOC: 2S 15:49 → ED 15:49 → SUATTDRO 21:07 → 2S 05-25 00:31